=== PATIENT | male | born 1965 | race Two or more races ===

== ENCOUNTER 2018-11-22 20:14 | Emergency (ER) | payer OTHER ==
[~2018-11-22] VITALS: Ht 172.7 cm; Wt 115.7 kg
[2018-11-22 20:30] VITALS: BP 126/82
--- NOTE | 2018-11-22 20:30 | NUR ---
ED Nurse Note: pt came in due to fever for 2 days. pt temp 07.7 upon checking oral temp. pt stated he has 5/10 body pain. seen by ermd. will continue to monitor.
--- NOTE | 2018-11-22 20:38 | NUR ---
Hill rubalcava in EDM - 11/22/18 at 2042 by SAVITA ED Nurse Note: pt went to ct with tech
[2018-11-22] MEDS ORDERED: Ketorolac 30mg Inj IM ONE (20:45)
--- NOTE | 2018-11-22 20:45 | NUR ---
ED Nurse Note: ermd on bedside examining pt. im toradol ordered and given to pt. and pt able to tolerate. will continue to monitor.
[2018-11-22] MEDS ORDERED: IBUPROFEN600 MG ORAL (21:31)
[2018-11-22 21:35] VITALS: BP 115/75
--- NOTE | 2018-11-22 21:35 | NUR ---
ED Nurse Note: pt was cleared for discharge by ermsolitario. pt vss. id band removed. pt able to verbalize understanding to the discharge instruction.
--- NOTE | 2018-11-25 07:32 | Emergency Room Report ---
History of Present Illness General Chief Complaint: Fever Source: Patient Present Illness HPI 53-year-old male presents ED for evaluation. Patient complaining of body aches and chills 2 days. States he had a fever yesterday. Took some Tylenol. Afebrile here. Complaining of some pain to his back. Afebrile in triage. Pain is dull, 3 out of 10, nonradiating. Denies cough or sore throat. Denies ear ache. Denies sick contacts or recent travel. Notes good energy good appetite. No other aggravating relieving factors. Denies any other associated symptoms Allergies: Coded Allergies: No Known Allergies (Unverified , 11/22/18) Patient History Pertinent Family History: none Social History: Denies: smoking, alcohol use, drug use Immunizations: UTD Reviewed Nursing Documentation: PMH: Agreed; PSxH: Agreed Nursing Documentation-PMH Past Medical History: No Stated History Review of Systems All Other Systems: negative except mentioned in HPI Physical Exam Vital Signs Date Time Temp Pulse Resp B/P (MAP) Pulse Ox O2 Delivery O2 Flow Rate FiO2 11/22/18 20:22 98.8 89 16 126/82 96 Room Air Sp02 EP Interpretation: reviewed, normal General Appearance: no apparent distress, alert, GCS 15, non-toxic Head: normocephalic, atraumatic Eyes: bilateral eye normal inspection, bilateral eye PERRL ENT: hearing grossly normal, normal pharynx, no angioedema, normal voice Neck: full range of motion, supple/symm/no masses Respiratory: chest non-tender, lungs clear, normal breath sounds, speaking full sentences Cardiovascular #1: regular rate, rhythm, no edema Cardiovascular #2: 2+ carotid (R), 2+ carotid (L), 2+ radial (R), 2+ radial (L) , 2+ dorsalis pedis (R), 2+ dorsalis pedis (L) Gastrointestinal: normal bowel sounds, non tender, soft, non-distended, no guarding, no rebound Rectal: deferred Genitourinary: normal inspection, no CVA tenderness Musculoskeletal: back normal, gait/station normal, normal range of motion, non- tender Neurologic: alert, oriented x3, responsive, motor strength/tone normal, sensory intact, speech normal Psychiatric: judgement/insight normal, memory normal, mood/affect normal, no suicidal/homicidal ideation Reflexes: 3+ bicep (R), 3+ bicep (L), 3+ tricep (R), 3+ tricep (L), 3+ knee (R) , 3+ knee (L) Skin: normal color, no rash, warm/dry, well hydrated Lymphatic: no adenopathy Medical Decision Making Diagnostic Impression: Primary Impression: Upper respiratory infection Qualified Codes: J06.9 - Acute upper respiratory infection, unspecified ER Course Hospital Course 53-year-old M presents to ED complaining of bodyaches and chills Differential diagnoses include: URI, pharyngitis, otitis media, influenza Clinical course Patient placed on stretcher. After initial history, exam reveals a middle-aged male in no acute distress. Bilateral TM unremarkable. No pharyngeal erythema. Lungs clear. No nuchal rigidity. Abdomen soft. Remainder physical exam unremarkable Patient is afebrile, nontoxic appearing. Vital stable. Given Toradol here. Safe for discharge with close outpatient follow-up. We'll provide PMD referrals Diagnosis - uri Stable and discharged home with prescriptions for motrin. drink plenty of fluids. Instructed to followup with PMD. Return to ED if symptoms recur or worsen Last Vital Signs Date Time Temp Pulse Resp B/P (MAP) Pulse Ox O2 Delivery O2 Flow Rate FiO2 11/22/18 21:35 97.7 70 14 115/75 99 Room Air Status: improved Disposition: HOME, SELF-CARE Condition: Stable Scripts Ibuprofen* (MOTRIN*) 600 Mg Tablet 600 MG ORAL Q8H PRN for For Pain, #30 TAB 0 Refills Prov: Shahab Bell MD 11/22/18 Referrals: NOT CHOSEN IPA/,REFERRING (PCP) [facility] Patient Instructions: Upper Respiratory Infection, Adult, [id number] Shahab Bell MD Nov 25, 2018 07:32
== END 2018-11-22 21:35 | disposition home or self-care (01) ==
LOC: EMR 20:43
DX: J06.9 Acute upper respiratory infection, unspecified (principal); M79.10 Myalgia, unspecified site
CPT/HCPCS: 96372; 99283; J1885